=== PATIENT | female | born 1985 | race Caucasian/White ===

== ENCOUNTER 2024-10-16 17:48 | Emergency (ER) | payer MEDICAID, OTHER ==
[~2024-10-16] VITALS: Ht 162.6 cm; Wt 49.9 kg
[2024-10-16 18:49] VITALS: BP 110/70; TEMP 98.2; O2SAT 97
[2024-10-16] MEDS ORDERED: SULF1TAB48 PO (19:32)
== END 2024-10-16 19:50 | disposition home or self-care (01) ==
LOC: ER 17:48
DX: L02.412 Cutaneous abscess of left axilla (principal)